=== PATIENT | male | born 1970 | race Hispanic/Latino ===

== ENCOUNTER 2018-09-11 06:23 | Day surgery (SDC) | payer OTHER ==
[2018-08-31 10:50] VITALS: BMI 27.5
[2018-09-11] MEDS ORDERED: Propofol 10 mg/ml Inj (20 ML) ONE (08:01)
[2018-09-11] MEDS ORDERED: Midazolam 2 MG/2 ML VIAL ONE (08:01)
[2018-09-11] MEDS ORDERED: Lidocaine 1% Inj (20ml) ONE (08:01)
[2018-09-11] MEDS ORDERED: Simethicone 40 mg/0.6 ml Liquid (30 ml) ONE (08:20)
[2018-09-11] MEDS ORDERED: Sodium Chloride 0.9% 1,000 ML IV SCH (08:45)
[2018-09-11 09:05] VITALS: RESP 16
[2018-09-11 09:40] VITALS: BP 113/81; PULSE 75; TEMP 98; O2SAT 97
== END 2018-09-11 10:24 | disposition home or self-care (01) ==
LOC: ENDO 06:23
PROVIDERS: ATTEND Internal Medicine Gastroenterology
DX: K21.0 Gastro-esophageal reflux disease with esophagitis (principal); K29.70 Gastritis, unspecified, without bleeding; K31.89 Other diseases of stomach and duodenum; I10 Essential (primary) hypertension
CPT/HCPCS: 43239; 88305; 88312; 88342; J2250; J2704; J7030; J7040